=== PATIENT | female | born 1950 | race Caucasian/White ===

== ENCOUNTER 2017-04-23 15:04 | Emergency (ER) | payer OTHER, MEDICARE ==
[~2017-04-23] VITALS: Ht 162.6 cm; Wt 102.5 kg
--- NOTE | 2017-04-23 15:30 | ED CARDIAC/CP/PALPITATIONS ---
History of Present Illness General Chief Complaint: Chest Pain Stated Complaint: SENT BY DR FOR CHEST PAIN Source: patient Exam Limitations: no limitations Vital Signs & Intake/Output Vital Signs & Intake/Output Vital Signs Date Time Temp Pulse Resp B/P B/P Pulse O2 O2 Flow FiO2 Mean Ox Delivery Rate 04/23 1855 68 18 100/65 92 04/23 1706 98.7 66 18 122/71 96 Room Air 04/23 1600 98 Room Air 04/23 1532 98.6 76 18 148/85 99 Room Air Triage Nurses Notes Reviewed? yes Onset: Abrupt Duration: hour(s): (few) Timing: single episode today Location: epigastric Radiation: CHEST Activities at Onset: AFTER EATING BOWL OF FRUIT AND AVOCADO HPI: 66 year old female presents to the ER for evaluation of chest pain after eating a bowl of fruit this morning. She has a history of a hiatal hernia and chronic shortness of breath. It lasted a few hours and when she called Dr. Kamara, he told her to come to the ER for evaluation. She is unsure if the pain is similar to previous acid refulx symptoms. She denies pain at this time but has some epigastric discomfort. No cough, fever, chills, productive sputum. No vomiting or diarrhea. Patient reports improvement of pain while lying on her left side. (Mars HURST,[facility]) Allergies Coded Allergies: Penicillins (HIVES 04/23/17) amoxicillin (HIVES 04/23/17) nitrofurantoin (From MACROBID) (HIVES 04/23/17) Reconcile Medications Aspirin (Ecotrin*) 325 MG TABLET.DR 1 TAB PO QPM HEART/BLOOD (Reported) Budesonide/Formoterol Fumarate (Symbicort 160-4.5 Mcg Inhaler) 160 MCG-4.5 MCG/ ACTUATION HFA.AER.AD 2 PUF INH PRN RESP. (Reported) Furosemide 20 MG TABLET 1 TAB PO QAM DIURETIC (Reported) Levothyroxine Sodium 100 MCG TABLET 1 TAB PO DAILY THYROID (Reported) Loratadine (Claritin) 10 MG TABLET 1 TAB PO DAILY ALLERGIES (Reported) Metoprolol Tartrate 25 MG TABLET 1 TAB PO BID HEART/BP (Reported) Ranitidine (Ranitidine HCl) 150 MG TABLET 1 TAB PO QPM GI (Reported) Rosuvastatin Calcium (Crestor) 5 MG TABLET 1 TAB PO QPM CHOLESTEROL (Reported ) Triamcinolone Acetonide 0.1 % CREAM..G. 1 GOGO TOP AD PRN SKIN (Reported) (Rosey HURST,Blane Navarro) Past History Travel History Traveled to Daily past 21 day No Medical History Any Pertinent Medical History? see below for history Cardiovascular: CAD Pneumonia Vaccine: 07/02/07 Surgical History Surgical History: CABG, MVR Psychosocial History Who do you live with Family Services at Home NONE What is your primary language Romanian Family History Hx Contributory? No (Alison Crews MD) Review of Systems Review of Systems Constitutional: Denies: chills, fever. EENTM: Reports: no symptoms. Respiratory: Denies: cough, short of breath. Cardiovascular: Reports: chest pain. Denies: palpitations, peripheral edema. GI: Denies: abdominal pain, nausea, vomiting. Genitourinary: Denies: discharge, dysuria, frequency. Musculoskeletal: Reports: no symptoms. Skin: Reports: no symptoms. Neurological/Psychological: Reports: no symptoms. Hematologic/Endocrine: Denies: bruising, bleeding, polyuria, polydipsia. Immunologic/Allergic: Denies: splenectomy. All Other Systems: Reviewed and Negative (Alison Crews MD) Physical Exam Physical Exam General Appearance: well developed/nourished, alert, awake, anxious Head: atraumatic, normal appearance Eyes: Bilateral: normal appearance, PERRL, EOMI. Ears, Nose, Throat: normal pharynx, hearing grossly normal Neck: normal inspection, supple, full range of motion Respiratory: normal breath sounds, chest non-tender, no respiratory distress Cardiovascular: regular rate/rhythm Peripheral Pulses: 2+ radial (R), 2+ radial (L) Gastrointestinal: normal bowel sounds, soft, non-tender Extremities: normal inspection, normal capillary refill, normal range of motion, no edema Neurologic/Psych: no motor/sensory deficits, awake, alert, oriented x 3, normal gait Skin: intact, normal color, warm/dry Core Measures ACS in differential dx? Yes CVA/TIA Diagnosis No Sepsis Present: No Sepsis Focused Exam Completed? No (Alison Crews MD) Progress Differential Diagnosis: AMI, aortic dissection, costochondritis, myocarditis, pericarditis, pneumonia, pneumothorax, pulmonary embolism, PUD/GERD, unstable angina Plan of Care: Orders Procedure Date/time Status TROPONIN LEVEL 04/23 1900 Complete EKG 04/23 1900 Active Telemetry/Rougher Helper 04/23 1551 Active URINALYSIS 04/23 1529 Complete TROPONIN LEVEL 04/23 1529 Complete PARTIAL THROMBOPLASTIN TIME 04/23 1529 Complete PROTHROMBIN TIME 04/23 1529 Complete LIPASE 04/23 1529 Complete LACTIC ACID 04/23 1529 Complete COMPREHENSIVE METABOLIC PANEL 04/23 1529 Complete CBC WITHOUT DIFFERENTIAL 04/23 1529 Complete EKG 04/23 1506 Active Laboratory Tests 04/23/17 1855: Troponin I 0.03 04/23/17 1831: Urine Color YEL, Urine Clarity CLEAR, Urine pH 6.0, Ur Specific [place] 1.020, Urine Protein NEG, Urine Ketones NEG, Urine Nitrite NEG, Urine Bilirubin NEG, Urine Urobilinogen 0.2, Ur Leukocyte Esterase SMALL H, Ur Microscopic SEDIMENT EXAMINED, Urine RBC 1-3, Urine WBC 3-5 H, Ur Epithelial Cells FEW, Urine Bacteria RARE H, Urine Hemoglobin TRACE-INTACT, Urine Glucose NEG 04/23/17 1552: Lactic Acid Cancelled 04/23/17 1552: Anion Gap 15, Estimated GFR > 60, BUN/Creatinine Ratio 27.8 H, Glucose 92, Lactic Acid 0.8, Calcium 8.7, Total Bilirubin 0.5, AST 33, ALT 41, Alkaline Phosphatase 88, Troponin I 0.03, Total Protein 7.3, Albumin 4.2, Globulin 3.1, Albumin/Globulin Ratio 1.4, Lipase 148, PT 11.7, INR 1.12, APTT 30, CBC w Diff NO MAN DIFF REQ, RBC 5.09, MCV 85.0, MCH 27.5, RDW 15.6 H, MPV 9.4, Gran % 68.7 , Lymphocytes % 20.8, Monocytes % 5.4, Eosinophils % 4.4, Basophils % 0.7, Absolute Granulocytes 4.0, Absolute Lymphocytes 1.2, Absolute Monocytes 0.3, Absolute Eosinophils 0.3, Absolute Basophils 0, PUBS MCHC 32.3 L Diagnostic Imaging: Viewed by Me: Radiology Read, CT Scan. Discussed w/RAD: Radiology Read, CT Scan. CXR Impression: PATIENT: PHUONG TOBIAS PRESENT AGE: 66 PATIENT ACCOUNT NO: [id number] : 49 LOCATION: [facility] ORDERING PHYSICIAN: Alison Crews MD SERVICE DATE: 04/23/173280 EXAM TYPE: RAD - XRY -PORTABLE CHEST XRAY EXAMINATION: XR PORTABLE CHEST CLINICAL INFORMATION: Chest pain; history of CABG procedure. COMPARISON: Prior chest radiographs, most recently 06/04/2008. TECHNIQUE: Portable frontal view of the chest was obtained. FINDINGS: There is stable mild cardiomegaly. There are post-CABG changes. There is mild pulmonary vascular congestion, without overt pulmonary edema. No focal infiltrate, effusion or pneumothorax is seen. There is no acute osseous abnormality. IMPRESSION: Findings are consistent with cardiomegaly and pulmonary vascular congestion. No overt pulmonary edema is seen. There is no focal infiltrate seen. DICTATED BY: Edward Aguirre MD DATE/TIME DICTATED:04/23/171617 RN EMERGENCY ROOM:[facility] DATE/TIME TRANSCRIBED:04/23/171617 CONFIDENTIAL, DO NOT COPY WITHOUT APPROPRIATE AUTHORIZATION. <Electronically signed in Other Vendor System> SIGNED BY: Edward Aguirre MD 04/23/171626 Initial ED EKG: NSR Hand-Off Endorsed To: Blane Currie MD Endorsed Time: 1900 Pending: EKG, labs (REPEAT TROPONIN) Comments: PATIENT: PHUONG TOBIAS PRESENT AGE: 66 PATIENT ACCOUNT NO: [id number] : 49 LOCATION: [facility] ORDERING PHYSICIAN: Blane Currie MD SERVICE DATE: 04/23/17 EXAM TYPE: CAT - CT ABD & PELVIS W/O IV CONTRAS EXAMINATION: CT ABDOMEN AND PELVIS WITHOUT CONTRAST CLINICAL INFORMATION: Lower chest and upper abdominal pain. COMPARISON: Abdominal ultrasound dated 11/04/2015. TECHNIQUE: Multidetector volumetric imaging was performed from the superior aspect of the liver through the pubic symphysis. Sagittal and coronal reformatted images were obtained on the technologist's workstation. DLP: 1085.05 mGy-cm FINDINGS: LUNG BASES: There are left base blebs. There is bibasilar linear scar/subsegmental atelectasis, left greater than right. There is a trace right pleural effusion. LIVER, GALLBLADDER, AND BILIARY TREE: The liver is normal in size, shape, and attenuation. No focal hepatic lesion or biliary ductal dilatation is present. The gallbladder is unremarkable with no evidence of radiopaque gallstones, gallbladder wall thickening, or obvious pericholecystic inflammatory changes. PANCREAS: Unremarkable. SPLEEN: Unremarkable. ADRENAL GLANDS: Unremarkable. KIDNEYS AND URETERS: The right kidney is markedly atrophic and shows a low-attenuation anterior cyst. The left kidney is normal in size, shape, and attenuation. No hydronephrosis, hydroureter, or calculi seen. No perinephric stranding. BLADDER: Unremarkable. GASTROINTESTINAL TRACT: There is a moderately large hiatus hernia. There is mild diverticulosis, without acute diverticulitis. No bowel obstruction, free intraperitoneal air or abscess is seen. There is no focal bowel wall thickening. The vermiform appendix appears normal. ABDOMINAL WALL: No significant hernia is appreciated. LYMPH NODES: Normal. VASCULAR: There is aortoiliac and mesenteric atherosclerotic change. No abdominal aortic aneurysm is seen. PELVIC VISCERA: The uterus and adnexa are unremarkable. OSSEOUS STRUCTURES: There is marked degenerative disc disease with vacuum phenomenon at L4-L5 and L5-S1. No acute or aggressive osseous abnormality is seen. IMPRESSION: 1. There is mild diverticulosis, without acute diverticulitis. No bowel obstruction, free intraperitoneal air or abscess is seen. The vermiform appendix appears normal. 2. There is a moderately large hiatus hernia. 3. There is marked right renal atrophy. A simple appearing right renal cyst is noted. No urinary calculus or hydronephroureter is seen bilaterally. 4. There is marked degenerative disc disease at L4-L5 and L5-S1. DICTATED BY: Edward Aguirre MD DATE/TIME DICTATED:04/23/172100 RN EMERGENCY ROOM:[facility] DATE/TIME TRANSCRIBED:04/23/172100 CONFIDENTIAL, DO NOT COPY WITHOUT APPROPRIATE AUTHORIZATION. 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 04/23/2017 9:57:50 PM phuong is asymptomatic at this time and suspects that her pain was due to her known hiatal hernia. I have advised her of the CAT scan report. (Rosey HURST,Blane Navarro) Departure Departure Condition: Stable Referrals: Gavin HURST,Darren [place] (PCP/Family) Lenin Kamara MD Departure Forms: Customer Survey General Discharge Information (Alison Crews MD) Departure Disposition: HOME OR SELF CARE Clinical Impression Primary Impression: Atypical chest pain Secondary Impressions: Hiatal hernia Additional Instructions: Take your ranitidine twice daily and maintain a bland diet and small meals. Avoid lying flat after meals. Follow-up with your gastrointestinal specialist for reevaluation of your hiatal hernia. Please also follow-up with your primary care physician or your classification analyst for reevaluation of your chest pain episode this week. Avoid exertion. Return to emergency department immediately if any concerns or sudden worsening. Please note that there might be incidental findings in your evaluation that are unrelated to the current emergency department visit. Please notify your primary care doctor about this emergency department visit in order to obtain and review all of the testing performed so that these incidental findings can be monitored as needed. If you had an x-ray performed, please understand that some fractures may not be seen on the initial set of x-rays. If your symptoms persist you might need a repeat set of x-rays to check for such a fracture. If you had a laceration evaluated, please understand that foreign bodies such as glass or wood may not be visible to the naked eye or on plain x-rays. If the wound becomes red, swollen, increasingly more painful or if there is any drainage from the wound, please have it reevaluated by a physician for the possibility of a retained foreign body. If you're unable to follow up as outlined in the discharge instructions please return to the emergency department. Thank you for choosing the [facility] Emergency Department for your care. It was a pleasure to serve you today. Blane Currie M.D. [facility] (Rosey HURST,Blane Navarro) Critical Care Note Critical Care Note Critical Care Time: non-applicable (Alison Crews MD)
[2017-04-23 16:09] LABS: ABSOLUTE BASOPHIL COUNT 0 /CUMM (0.0-0.2); ABSOLUTE EOSINOPHIL COUNT 0.3 /CUMM (0.0-0.7); ABSOLUTE LYMPH COUNT 1.2 /CUMM (1.2-3.4); ABSOLUTE MONOCYTE COUNT 0.3 /CUMM (0.10-0.60); BASOPHIL % 0.7 % (0.0-2.0); EOSINOPHIL % 4.4 % (0-5); GRANULOCYTE % 68.7 % (42.2-75.2); HEMATOCRIT 43.3 % (37-47); MEAN CORPUSCULAR HGB 27.5 PG (27.0-31.0); MEAN CORPUSCULAR HGB CONC 32.3 G/DL (33.0-37.0); MEAN PLATELET VOLUME 9.4 FL (7.4-10.4); PLATELET COUNT 172 /CUMM (130-400); RBC DISTRIBUTION WIDTH 15.6 % (11.5-14.5); RED BLOOD CELL CT 5.09 /CUMM (4.20-5.40); WHITE BLOOD CELL COUNT 5.8 /CUMM (4.8-10.8)
[2017-04-23 16:17] LABS: PT 11.7 SEC (9.4-12.5); PTT 30 SEC (25-37)
--- NOTE | 2017-04-23 16:27 | RADIOLOGY REPORT ---
EXAMINATION: XR PORTABLE CHEST CLINICAL INFORMATION: Chest pain; history of CABG procedure. COMPARISON: Prior chest radiographs, most recently 06/04/2008. TECHNIQUE: Portable frontal view of the chest was obtained. FINDINGS: There is stable mild cardiomegaly. There are post-CABG changes. There is mild pulmonary vascular congestion, without overt pulmonary edema. No focal infiltrate, effusion or pneumothorax is seen. There is no acute osseous abnormality. IMPRESSION: Findings are consistent with cardiomegaly and pulmonary vascular congestion. No overt pulmonary edema is seen. There is no focal infiltrate seen.
[2017-04-23] MEDS ORDERED: ASPIRIN EC325 M2 PO (18:22)
[2017-04-23] MEDS ORDERED: FUROSEMIDE20 M1 PO (18:22)
[2017-04-23] MEDS ORDERED: CLARITIN10 M1 PO (18:22)
[2017-04-23] MEDS ORDERED: METOPROLOL TART25 M1 PO (18:22)
[2017-04-23] MEDS ORDERED: CRESTOR5 M1 PO (18:23)
[2017-04-23] MEDS ORDERED: LEVOTHYROXINE100 MC1 PO (18:23)
[2017-04-23] MEDS ORDERED: RANITIDINE HCL150 MG PO (18:23)
[2017-04-23] MEDS ORDERED: SYMBICORT 16010.2 GM INH (18:23)
[2017-04-23] MEDS ORDERED: TRIAMCINOLONE A15 G1 TOP (18:24)
[2017-04-23 18:55] VITALS: BP 100/65
--- NOTE | 2017-04-23 21:17 | CT SCAN REPORT ---
EXAMINATION: CT ABDOMEN AND PELVIS WITHOUT CONTRAST CLINICAL INFORMATION: Lower chest and upper abdominal pain. COMPARISON: Abdominal ultrasound dated 11/04/2015. TECHNIQUE: Multidetector volumetric imaging was performed from the superior aspect of the liver through the pubic symphysis. Sagittal and coronal reformatted images were obtained on the technologist's workstation. DLP: 1085.05 mGy-cm FINDINGS: LUNG BASES: There are left base blebs. There is bibasilar linear scar/subsegmental atelectasis, left greater than right. There is a trace right pleural effusion. LIVER, GALLBLADDER, AND BILIARY TREE: The liver is normal in size, shape, and attenuation. No focal hepatic lesion or biliary ductal dilatation is present. The gallbladder is unremarkable with no evidence of radiopaque gallstones, gallbladder wall thickening, or obvious pericholecystic inflammatory changes. PANCREAS: Unremarkable. SPLEEN: Unremarkable. ADRENAL GLANDS: Unremarkable. KIDNEYS AND URETERS: The right kidney is markedly atrophic and shows a low-attenuation anterior cyst. The left kidney is normal in size, shape, and attenuation. No hydronephrosis, hydroureter, or calculi seen. No perinephric stranding. BLADDER: Unremarkable. GASTROINTESTINAL TRACT: There is a moderately large hiatus hernia. There is mild diverticulosis, without acute diverticulitis. No bowel obstruction, free intraperitoneal air or abscess is seen. There is no focal bowel wall thickening. The vermiform appendix appears normal. ABDOMINAL WALL: No significant hernia is appreciated. LYMPH NODES: Normal. VASCULAR: There is aortoiliac and mesenteric atherosclerotic change. No abdominal aortic aneurysm is seen. PELVIC VISCERA: The uterus and adnexa are unremarkable. OSSEOUS STRUCTURES: There is marked degenerative disc disease with vacuum phenomenon at L4-L5 and L5-S1. No acute or aggressive osseous abnormality is seen. IMPRESSION: 1. There is mild diverticulosis, without acute diverticulitis. No bowel obstruction, free intraperitoneal air or abscess is seen. The vermiform appendix appears normal. 2. There is a moderately large hiatus hernia. 3. There is marked right renal atrophy. A simple appearing right renal cyst is noted. No urinary calculus or hydronephroureter is seen bilaterally. 4. There is marked degenerative disc disease at L4-L5 and L5-S1.
== END 2017-04-23 22:19 ==
LOC: ERH 15:04
PROVIDERS: Emergency Medicine
DX: R07.89 Other chest pain (principal); K44.9 Diaphragmatic hernia without obstruction or gangrene
CPT/HCPCS: 71045; 74176; 81001; 93005; 93010